=== PATIENT | female | born 1995 | race African-American/Black ===

== ENCOUNTER 2019-08-07 22:13 | Emergency (ER) | payer BC, MEDICAID, OTHER ==
[2019-08-07 23:06] LABS: APPEARANCE,URINE SLIGHTLY-CLOUDY; BILIRUBIN,URINE NEGATIVE (NEGATIVE); COLOR,URINE YELLOW; GLUCOSE, URINE NEGATIVE (NEGATIVE); KETONES,URINE TRACE mg/dL (NEGATIVE); LEUKOCYTE ESTERASE,URINE SMALL (NEGATIVE); NITRITE,URINE NEGATIVE (NEGATIVE); PROTEIN,URINE NEGATIVE (NEGATIVE); URINE SPECIFIC GRAVITY 1.025
[2019-08-08] MEDS ORDERED: METOCLOPRAMIDE HCL INJ/PF 10 MG/2 ML SDV IV ONE (00:43)
[2019-08-08] MEDS ORDERED: DIPHENHYDRAMINE HCL 50 MG/ML VIAL IV ONE (00:43)
[2019-08-08] MEDS ORDERED: NORMAL SALINE 1000 ML 1,000 ML IV ONE (00:43)
--- NOTE | 2019-08-08 01:13 | ER Document Report ---
Entered by MELLO TONG SCRIBE 08/08/19 0048 Acting as scribe for:CHRISTINE WORRELL MD ED GI/ - General Chief Complaint: OB Problem (<20wks) Stated Complaint: HEADACHE,DIZZINESS,VOMITING Time Seen by Provider: 08/08/19 00:32 Mode of Arrival: Ambulatory Information source: Patient Notes: Patient is a 23-year-old female that presents to the emergency depa rtment today with complaints of a headache with associated nausea, bilious vomiting, and dizziness. Patient states her last menstrual period was on 04/17. Patient is . Patient has not received care for this stating she just moved here from [place] and was "worried about moving". There has been no abdominal cramping or vaginal bleeding. Patient states her headache sometimes respond to Tylenol. She has been taking 2 Tylenol daily for the past 2 weeks. 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 TRAVEL OUTSIDE OF THE [place] IN LAST 30 DAYS: No - Related Data Allergies/Adverse Reactions: No Known Allergies Allergy (Unverified 08/08/19 02:04) Past Medical History - General Information source: Patient - Social History Smoking Status: Never Smoker Cigarette use (# per day): No Frequency of alcohol use: None Drug Abuse: None Lives with: Family Family History: Reviewed & Not Pertinent Review of Systems - Review of Systems Constitutional: No symptoms reported EENT: No symptoms reported Cardiovascular: See HPI, Dizziness Respiratory: No symptoms reported Gastrointestinal: See HPI, Nausea, Vomiting Genitourinary: No symptoms reported Female Genitourinary: See HPI, Last menstrual period - 04/17, Musculoskeletal: No symptoms reported Skin: No symptoms reported Hematologic/Lymphatic: No symptoms reported Neurological/Psychological: See HPI, Headaches -: Yes All other systems reviewed and negative Physical Exam - Vital signs Vitals: Temp Pulse Resp BP Pulse Ox 98.7 F 97 16 129/83 H 100 08/07/19 22:37 08/07/19 22:37 08/07/19 22:37 08/07/19 22:37 08/07/19 22:37 - Notes Notes: Physical Exam: General: Alert, appears well. HEENT: Normocephalic. Atraumatic. PERRL. Extraocular movements intact. Oropharynx clear. Left temporal muscles, forehead, and maxillary sinus tenderness with palpation. Neck: Supple. Left posterior cervical musculature tenderness with palpation, no right sided tenderness. Respiratory: No respiratory distress. Clear and equal breath sounds bilaterally. Cardiovascular: Regular rate and rhythm. Abdominal: Gravid female. Non-tender. No distension. Normal Bowel Sounds. Back: No gross abnormalities. Extremities: Moves all four extremities. Upper extremities: Normal inspection. Normal ROM. Lower extremities: Normal inspection. No edema. Normal ROM. Neurological: Normal cognition. AAOx4. Normal speech. Psychological: Normal affect. Normal Mood. Skin: Warm. Dry. Normal color. Course - Vital Signs Vital signs: Temp Pulse Resp BP Pulse Ox 98.7 F 97 16 129/83 H 100 08/07/19 22:37 08/07/19 22:37 08/07/19 22:37 08/07/19 22:37 08/07/19 22:37 - Laboratory Result Diagrams: 08/08/19 01:35 08/08/19 01:35 Laboratory results interpreted by me: 08/07/19 08/08/19 08/08/19 22:40 01:35 01:35 Hgb 11.9 L Hct 34.2 L Sodium 135.2 L Carbon Dioxide 19 L Creatinine 0.48 L Serum HCG, Qual Urine Ketones TRACE H Urine Urobilinogen 4.0 H Ur Leukocyte Esterase SMALL H 08/08/19 01:35 Hgb Hct Sodium Carbon Dioxide Creatinine Serum HCG, Qual POSITIVE H Urine Ketones Urine Urobilinogen Ur Leukocyte Esterase Discharge - Discharge Clinical Impression: Tension headache Nausea and vomiting Qualifiers: Vomiting type: bilious vomiting Qualified Code(s): R11.14 - Bilious vomiting Qualifiers: Weeks of gestation: unspecified Qualified Code(s): Z34.90 - Encounter for supervision of normal , unspecified, unspecified trimester Condition: Stable Disposition: HOME, SELF-CARE Additional Instructions: Take medications as prescribed for nauseousness or headache if needed. Drink plenty of cool clear liquids today. Follow-up with the health department this week as planned. RETURN TO THE EMERGENCY ROOM IF ANY NEW OR WORSENING SYMPTOMS. Prescriptions: Metoclopramide HCl [Reglan 10 mg Tablet] 1 tab PO ASDIR PRN #25 tablet PRN Reason: Scribe Attestation: 08/08/19 01:15 I personally performed the services described in the documentation, reviewed and edited the documentation which was dictated to the scribe in my presence, and it accurately records my words and actions. I personally performed the services described in the documentation, reviewed and edited the documentation which was dictated to the scribe in my presence, and it accurately records my words and actions.
[2019-08-08 01:54] LABS: ABSOLUTE BASOPHILS # (AUTO) 0.1 10^3/uL (0.0-0.2); ABSOLUTE EOSINOPHILS # (AUTO) 0.3 10^3/uL (0.0-0.6); ABSOLUTE LYMPHOCYTES (AUTO) 2.9 10^3/uL (0.5-4.7); ABSOLUTE MONOCYTES (AUTO) 0.4 10^3/uL (0.1-1.4); ABSOLUTE NEUT (AUTO) 6.6 10^3/uL (1.7-8.2); BASOPHILS % (AUTO) 0.6 % (0-2); EOSINOPHILS % (AUTO) 3.1 % (0-6); HEMATOCRIT 34.2 % (36.0-47.0); HEMOGLOBIN 11.9 g/dL (12.0-15.5); LYMPHOCYTES % (AUTO) 28.4 % (13-45); MEAN CORPUSCULAR HEMOGLOBIN 31.3 pg (27.0-33.4); MEAN CORPUSCULAR HGB CONC 34.9 g/dL (32.0-36.0); MEAN CORPUSCULAR VOLUME 90 fl (80-97); MONOCYTES % (AUTO) 4.3 % (3-13); PLATELET COUNT 363 10^3/uL (150-450); RED BLOOD COUNT 3.81 10^6/uL (3.72-5.28); RED CELL DISTRIBUTION WIDTH 13.1 % (11.5-14.0); SEGMENTED NEUTROPHILS % (AUTO) 63.6 % (42-78); TOTAL CELLS COUNTED % (AUTO) 100 %; WHITE BLOOD COUNT 10.4 10^3/uL (4.0-10.5)
[2019-08-08 02:11] LABS: ALBUMIN 4.1 g/dL (3.5-5.0); ALKALINE PHOSPHATASE 48 U/L (38-126); ANION GAP 12 (5-19); ASPARTATE AMINO TRANSFERASE 23 U/L (14-36); BILIRUBIN,DIRECT 0.1 mg/dL (0.0-0.4); BILIRUBIN,TOTAL 0.3 mg/dL (0.2-1.3); BLOOD UREA NITROGEN 7 mg/dL (7-20); CALCIUM 9.7 mg/dL (8.4-10.2); CARBON DIOXIDE 19 mmol/L (22-30); CHLORIDE 104 mmol/L (98-107); GLUCOSE 90 mg/dL (75-110); POTASSIUM 3.9 mmol/L (3.6-5.0); TOTAL PROTEIN 7.3 g/dL (6.3-8.2)
[2019-08-08 02:58] VITALS: BP 100/69
== END 2019-08-08 03:08 | disposition home or self-care (01) ==
LOC: ER 22:13
DX: O26.90 Pregnancy related conditions, unspecified, unspecified trimester (principal); G44.209 Tension-type headache, unspecified, not intractable; R42 Dizziness and giddiness; R11.10 Vomiting, unspecified
CPT/HCPCS: 86900; 86901; 36415; 84703; 85025; 80053; 81001; J1200; J2765; J7030

== ENCOUNTER 2019-08-31 22:13 | Outpatient (CLI) | payer SELFPAY ==
[2019-08-31 23:02] LABS: BACTERIA (WET MOUNT) 4+ BACTERIA SEEN; EPITHELIALS (WET MOUNT) 4+ EPITHELIALS SEEN; RBCS (WET MOUNT) 1+ RBCS SEEN; T.VAGINALIS (WET MOUNT) NO TRICHOMONAS SEEN; WBCS (WET MOUNT) 1+ WBCS SEEN; YEAST (WET MOUNT) YEAST SEEN
[2019-08-31 23:07] LABS: AMORPHOUS SEDIMENT,URINE TRACE /HPF; APPEARANCE,URINE CLOUDY; BILIRUBIN,URINE NEGATIVE (NEGATIVE); COLOR,URINE YELLOW; GLUCOSE, URINE NEGATIVE (NEGATIVE); KETONES,URINE NEGATIVE (NEGATIVE); LEUKOCYTE ESTERASE,URINE NEGATIVE (NEGATIVE); NITRITE,URINE NEGATIVE (NEGATIVE); PROTEIN,URINE NEGATIVE (NEGATIVE); URINE SPECIFIC GRAVITY 1.012; UROBILINOGEN,URINE NEGATIVE mg/dL (<2.0)
[2019-08-31 23:36] LABS: ABSOLUTE EOSINOPHILS # (AUTO) 0.3 10^3/uL (0.0-0.6); ABSOLUTE LYMPHOCYTES (AUTO) 2.2 10^3/uL (0.5-4.7); ABSOLUTE MONOCYTES (AUTO) 0.6 10^3/uL (0.1-1.4); BASOPHILS % (AUTO) 0.3 % (0-2); EOSINOPHILS % (AUTO) 2.4 % (0-6); HEMATOCRIT 34.5 % (36.0-47.0); HEMOGLOBIN 11.9 g/dL (12.0-15.5); LYMPHOCYTES % (AUTO) 15.7 % (13-45); MEAN CORPUSCULAR HEMOGLOBIN 31.9 pg (27.0-33.4); MEAN CORPUSCULAR HGB CONC 34.4 g/dL (32.0-36.0); MEAN CORPUSCULAR VOLUME 93 fl (80-97); PLATELET COUNT 337 10^3/uL (150-450); RED BLOOD COUNT 3.72 10^6/uL (3.72-5.28); RED CELL DISTRIBUTION WIDTH 13.1 % (11.5-14.0); SEGMENTED NEUTROPHILS % (AUTO) 77.6 % (42-78); TOTAL CELLS COUNTED % (AUTO) 100 %; WHITE BLOOD COUNT 14.2 10^3/uL (4.0-10.5)
[2019-09-01 00:29] LABS: CHLAM PCR NOT DETECTED (NOT DETECT)
[2019-09-01 00:30] LABS: URINE AMPHETAMINES SCREEN NEGATIVE; URINE BARBITURATES SCREEN NEGATIVE; URINE BENZODIAZEPINES SCREEN NEGATIVE; URINE COCAINE SCREEN NEGATIVE; URINE MARIJUANA (THC) SCREEN NEGATIVE; URINE METHADONE SCREEN NEGATIVE; URINE PHENCYCLIDINE SCREEN NEGATIVE
--- NOTE | 2019-09-01 00:48 | RADIOLOGY REPORT (SQ) ---
EXAM: Some greater than 14 weeks CLINICAL DATA: 23-year-old female with no care, 20 weeks . TECHNICAL DATA: Transabdominal ultrasound imaging was performed through the gravid uterus. This study was performed on 08/31/2019 at 11:09 PM COMPARISON: None. FINDINGS: ANATOMIC EVALUATION FETUS single POSITION breech HEART RATE 145 bpm AMNIOTIC FLUID 13.8 cm PLACENTA LOCATION fundal PREVIA none ANATOMY IDENTIFIED: Four-chamber heart, three-vessel cord, normal cord insertion, bladder, stomach, cerebellum and cisterna magna. The spine, lateral ventricles, kidneys and upper and lower extremities are suboptimally visualized on this examination. MEASUREMENTS BPD: 4.6 cm corresponding to 19 weeks, 6 days. HC: 17.34 cm corresponding to 19 weeks, 6 days. AC: 14.55 cm corresponding to 19 weeks, 6 days. FL: 3.19 cm corresponding to 19 weeks, 6 days. CER: 3.9 cm in length FL/AC: 21.9 FL/BPD: 69.3 HC/AC: 1.19 CI: 78.3 EFW: 319 grams +/- 47 grams CLINICAL DATES LMP 04/08/2019 [place] 20 weeks 5 days EDC 01/13/[address] DATES BY [address]OUND [address] [place] 19 weeks 6 days EDC 01/19/2020 IMPRESSION: 1. Single living intrauterine in breech presentation at this time with an estimated ultrasound age of 19 weeks, 6 days with an estimated due date of 01/19/2020. This corresponds to within six days of the expected clinical gestational age. 2. The placenta is fundal in location without evidence of placenta previa. 3. The amniotic fluid index is within normal limits. 4. The anatomic survey is unremarkable as visualized. Some body parts are suboptimally visualized at this time.. 5. The anatomic ratios are within normal limits..
[2019-09-02 07:37] LABS: HEPATITIS C VIRUS AB <0.1 s/co ratio (0.0-0.9)
[2019-09-03 08:22] LABS: HEPATITS B SURFACE ANTIGEN Negative (Negative)
== END 2019-09-01 01:09 | disposition home or self-care (01) ==
LOC: LC 22:13
PROVIDERS: ATTEND Obstetrics & Gynecology
PROC: 4A1HXCZ Monitoring of Products of Conception, Cardiac Rate, External Approach (ICD-10-PCS; principal; 2019-08-31)
DX: O47.02 False labor before 37 completed weeks of gestation, second trimester (principal); O23.592 Infection of other part of genital tract in pregnancy, second trimester; B37.3 Candidiasis of vulva and vagina; O09.32 Supervision of pregnancy with insufficient antenatal care, second trimester; Z3A.20 20 weeks gestation of pregnancy
CPT/HCPCS: 59899; 86900; 86901; 36415; 87210; 86850; 85025; 86762; 86592; 81001; 87340; 86701; 80307; 87491; 87591; 86803; 86804; 76805; Q0114